=== PATIENT | male | born 1950 | race Caucasian/White ===

== ENCOUNTER → 2020-05-01 09:43 | Outpatient (BNVA) | payer MEDICARE, SELFPAY | PROVIDERS: Family Provider Family Medicine; PCP Family Medicine; Visit Provider Nurse Practitioner Family | DX: I10 Essential (primary) hypertension (principal); L29.9 Pruritus, unspecified; L08.9 Local infection of the skin and subcutaneous tissue, unspecified; E03.9 Hypothyroidism, unspecified | CPT/HCPCS: 80053; 80061; 84439; 84443 ==

== ENCOUNTER → 2021-05-06 11:50 | Outpatient (BNVA) | payer MEDICARE, SELFPAY | PROVIDERS: Family Provider Family Medicine; PCP Family Medicine; Visit Provider Nurse Practitioner Family | DX: E03.9 Hypothyroidism, unspecified (principal); I10 Essential (primary) hypertension; E78.5 Hyperlipidemia, unspecified; Z68.24 Body mass index [BMI] 24.0-24.9, adult; I63.9 Cerebral infarction, unspecified | CPT/HCPCS: 80053; 80061; 84439; 84443; 85025 ==

== ENCOUNTER → 2021-06-23 11:04 | Outpatient (BNVA) | payer MEDICARE, SELFPAY | PROVIDERS: Family Provider Family Medicine; PCP Family Medicine; Visit Provider Nurse Practitioner Family | DX: E03.9 Hypothyroidism, unspecified (principal) | CPT/HCPCS: 84443 ==

== ENCOUNTER → 2021-08-31 09:19 | Outpatient (BNVA) | payer MEDICARE, SELFPAY | PROVIDERS: Family Provider Family Medicine; PCP Family Medicine; Visit Provider Nurse Practitioner Family | DX: E03.9 Hypothyroidism, unspecified (principal) | CPT/HCPCS: 84443 ==

== ENCOUNTER → 2021-10-01 15:58 | Outpatient (BNVA) | payer MEDICARE, SELFPAY | PROVIDERS: Family Provider Family Medicine; PCP Family Medicine; Visit Provider Nurse Practitioner Family | DX: Z20.822 Contact with and (suspected) exposure to COVID-19 (principal); R51.9 Headache, unspecified | CPT/HCPCS: 87635 ==

== ENCOUNTER 2021-10-10 10:26 | Inpatient (IN) | payer MEDICARE, SELFPAY ==
[2021-10-10 11:14] VITALS: BP 72/45; PULSE 84; RESP 16; TEMP 36.4; O2SAT 94
--- NOTE | 2021-10-10 11:34 | XRR_ITS ---
PROCEDURE INFORMATION: Exam: XR Chest Exam date and time: 10/10/2021 11:34 AM Age: 70 years old Clinical indication: Patient HX: PT with HX of fatigue TECHNIQUE: Imaging protocol: XR of the chest. Views: 1 view. COMPARISON: No relevant prior studies available. FINDINGS: Lungs: There are small patchy interstitial infiltrates in the right mid lung zone and left lung base. This could be a developing interstitial pneumonia. Pleural spaces: Unremarkable. No pleural effusion. No pneumothorax. Heart/Mediastinum: Unremarkable. No cardiomegaly. Bones/joints: Unremarkable. XR/XR chest 1V portable [id number] IMPRESSION: Patchy interstitial infiltrates in the right mid lung zone and left base suspicious for an interstitial viral pneumonia.
--- NOTE | 2021-10-10 11:34 | ECG_ITS ---
[facility] Test Date: 2021-10-10 Pat Name: Rich Mederos Department: Room: Gender: Male Terminal Gauger: : 1950 Requested By: Yani Malik Order Number: [id number] Reading MD: LANCE JARVIS Measurements Intervals [place] Rate: 74 P: 40 TN: 178 QRS: 40 QRSD: 96 T: 9 QT: 373 QTc: 415 Interpretive Statements SINUS RHYTHM NONSPECIFIC T-WAVE ABNORMALITY No previous ECG available for comparison Electronically Signed On 10-10-2021 17:44:47 SECURITY GUARD SUPERVISOR by LANCE JARVIS [id number]
[2021-10-10 11:35] LABS: Glucose Point of Care 102 mg/dL (70-110)
--- NOTE | 2021-10-10 11:38 | USR_ITS ---
PROCEDURE INFORMATION: Exam: US Duplex Lower Extremity Veins, Bilateral Exam date and time: 10/10/2021 11:38 AM Age: 70 years old Clinical indication: Swelling (edema) of limb; Lower extremity, bilateral; Patient HX: Covid +; Additional info: Eval for dvt TECHNIQUE: Imaging protocol: Real-time duplex ultrasound of the extremities with 2-D ware scale, color Doppler flow and spectral waveform analysis with image documentation. Complete exam focused on the bilateral lower extremity veins. COMPARISON: No relevant prior studies available. FINDINGS: Right deep veins: Unremarkable. The common femoral, femoral, proximal profunda femoral and popliteal veins are patent without thrombus. Normal Doppler waveforms. Normal compressibility and/or augmentation response. Right superficial veins: Saphenofemoral junction is patent without thrombus. Left deep veins: Unremarkable. The common femoral, femoral, proximal profunda femoral and popliteal veins are patent without thrombus. Normal Doppler waveforms. Normal compressibility and/or augmentation response. Left superficial veins: Saphenofemoral junction is patent without thrombus. Soft tissues: Unremarkable. US/CV venous duplex [facility] [id number] IMPRESSION: No evidence of deep vein thrombosis.
[2021-10-10 11:56] LABS: Basophils # 0.1 10^3/uL (0.0-0.1); Basophils % 0.6 %; Eosinophils % 0.2 %; Hematocrit 41.3 % (42.0-52.0); Hemoglobin 13.6 g/dL (11.7-16.6); Lymphocytes # 1.1 10^3/uL (0.8-4.8); Lymphocytes % 8.6 %; Mean Corpuscular HGB Conc 32.9 g/dL (30.0-36.0); Mean Corpuscular Hemoglobin 30.7 pg (28.0-34.0); Mean Corpuscular Volume 93.2 fl (80-94); Mean Platelet Volume 9.7 fL (7.4-10.4); Monocytes # 1.7 10^3/uL (0.2-0.9); Monocytes % 13.2 %; Neutrophils # 9.13 10^3/uL (1.8-7.7); Neutrophils % 72.8 %; Nucleated Red Blood Cells % 0 %; Platelet Count 451 10^3/cmm (130-400); Red Blood Count 4.43 10^6/uL (4.1-5.3); Red Cell Distribution Width 13.9 % (12.1-15.1); White Blood Count 12.6 10^3/uL (4.0-10.0)
[2021-10-10 12:01] VITALS: BP 104/44; PULSE 77; RESP 24; O2SAT 99
--- NOTE | 2021-10-10 12:08 | ED_ITS ---
HPI - COVID General: Chief Complaint: COVID symptoms Stated Complaint: COVID +, feet swollen, getting worse Time Seen by Provider: 10/10/21 11:23 Triage information: Has fever, cough or shortness of breath . Exposure to COVID + person last 14 days COVID Results: SARS-CoV-2 RNA (RT-PCR) Detected (NOT DETECTED) A 10/01/21 15:58 10/01/21 [facility] ED PFS: Medical History Hyperlipidemia Social History Alcohol intake: never Course Vital Signs: Vital signs: Vital Signs Temperature 97.6 F 10/10/21 11:14 Pulse Rate 84 10/10/21 11:14 Respiratory Rate 16 10/10/21 11:14 Blood Pressure 72/45 10/10/21 11:14 Pulse Oximetry 94 10/10/21 11:14 MDM - COVID Lab Data : 10/10/21 11:31 10/10/21 11:31 Laboratory Results WBC 12.6 10^3/uL (4.0-10.0) H 10/10/21 11:31 RBC 4.43 10^6/uL (4.1-5.3) 10/10/21 11:31 Hgb 13.6 g/dL (11.7-16.6) 10/10/21 11:31 Hct 41.3 % (42.0-52.0) L 10/10/21 11:31 MCV 93.2 fl (80-94) 10/10/21 11:31 MCH 30.7 pg (28.0-34.0) 10/10/21 11:31 MCHC 32.9 g/dL (30.0-36.0) 10/10/21 11:31 RDW 13.9 % (12.1-15.1) 10/10/21 11:31 Plt Count 451 10^3/cmm (130-400) H 10/10/21 11:31 MPV 9.7 fL (7.4-10.4) 10/10/21 11:31 Neut % (Auto) 72.8 % 10/10/21 11:31 Lymph % (Auto) 8.6 % 10/10/21 11:31 [place]kin % (Auto) 13.2 % 10/10/21 11:31 Eos % (Auto) 0.2 % 10/10/21 11:31 Baso % (Auto) 0.6 % 10/10/21 11:31 Neut # (Auto) 9.13 10^3/uL (1.8-7.7) H 10/10/21 11:31 Lymph # (Auto) 1.1 10^3/uL (0.8-4.8) 10/10/21 11:31 [place]kin # (Auto) 1.7 10^3/uL (0.2-0.9) H 10/10/21 11:31 Eos # (Auto) 0.0 10^3/uL (0.0-0.8) 10/10/21 11:31 Baso # (Auto) 0.1 10^3/uL (0.0-0.1) 10/10/21 11:31 Nucleated RBC % (auto) 0 % 10/10/21 11:31 Nucleated RBCs # 0.0 /100WBC 10/10/21 11:31 POC Glucose 102 mg/dL (70-110) 10/10/21 11:31 SARS-CoV-2 RNA (RT-PCR) Detected (NOT DETECTED) A 10/01/21 15:58 10/01/21 Discharge Plan Discharge Condition: Stable Prescriptions: No Action hydroxyzine HCl 25 mg tablet 25 mg PO TID PRN (Reason: itching) Qty: 30 0RF simvastatin 20 mg tablet 20 mg PO DAILY Qty: 90 1RF lisinopril 10 mg tablet 10 mg PO DAILY Qty: 90 1RF clopidogrel [Plavix] 75 mg tablet 75 mg PO DAILY Qty: 90 1RF levothyroxine 88 mcg tablet 88 mcg PO DAILY Qty: 90 3RF Referrals: Alfonzo Galan DO [Primary Care Provider] - Coding Level of Care Code ED Dish Maker for Chg Endy
--- NOTE | 2021-10-10 12:10 | ED_ITS ---
HPI - General Adult General: Chief complaint: COVID symptoms Stated complaint: COVID +, feet swollen, getting worse Time Seen by Provider: 10/10/21 11:23 History of Present Illness: Patient is a 70-year-old male with history of of Covid diagnosed 14 days ago presenting to emergency room with complaints of worsening weakness, fatigue, chills since diagnosis of Covid. Patient says that he has been doing well has not had crease intake since then. Patient has had diarrhea is now improving. Patient denies any melena, abdominal complaints, cough, fever or chills. Patient has not had any oxygen issues at home. Patient reports prior history of cardiac issues. Patient reports bilateral ankle pain and swelling from lying down. Onset: 14 days ago Duration:14 days Location:home Severity:moderate Associated symptoms: Reports malaise; Deny chest pain, dyspnea, nausea, rash, palpitations or vomiting Review of Systems Const: Reports: chills, fatigue, malaise and other (generalized weakness); Denies: fever(s) Eyes: Denies: change in vision ENMT: Denies: mouth pain Card: Denies: chest pain or palpitations Resp: Denies: dyspnea or non-productive cough GI: Denies: abdominal pain, nausea, vomiting or diarrhea : Denies: dysuria Musc: Denies: extremity pain Skin/Breast: Denies: rash or new lesions Neuro: Denies: weakness in extremities Psych: Reports: other (Normal mood) Alber/Lymph: Denies: easy bruising PFSH ED PFSH: Medical History Hyperlipidemia Social History (Updated 10/10/21 @ 12:12 by Yani Malik MD) Smoking and tobacco status: never smoked Alcohol intake: never Substance/Drug Use: never Physical Exam Const: COMMON NORMALS: alert HENMT: COMMON NORMALS: atraumatic HEAD & SCALP: atraumatic MOUTH: moist mucous membranes not abnormal Eye: COMMON NORMALS: EOMs intact bilaterally and conjunctivae normal CONJUNCTIVA: Yes conjunctivae normal Neck/C-Spine: COMMON NORMALS: full ROM and supple Resp: COMMON NORMALS: normal respiratory effort and clear to auscultation bilaterally AUSCULTATION: clear to auscultation bilaterally Cardio: COMMON NORMALS: regular rate RATE: regular rate GI: COMMON NORMALS: Soft to palpation and non-tender PALPATION: Yes Soft to palpation Extremity: COMMON NORMALS: full ROM NARRATIVE EXTREMITY EXAM: no lower extremity swelling or edema Neuro: SENSORIUM/ORIENTATION: Yes alert MOTOR EXAM: No Abnormal motor strength present and Other motor observations present (no focal motor deficits) Psych: COMMON NORMALS: speech normal SPEECH: Yes normal speech MOOD & AFFECT: Yes euthymic mood Course Vital Signs: Vital signs: Vital Signs Temperature 97.6 F 10/10/21 11:14 Pulse Rate 77 10/10/21 12:01 Respiratory Rate 24 H 10/10/21 12:01 Blood Pressure 104/44 10/10/21 12:01 Pulse Oximetry 99 10/10/21 12:01 MDM - General Adult Medical Decision Making 70-year-old male presented to the emergency room for concerns of worsening fatigue, generalized weakness, and ankle swelling. On exam, patient has mild bilateral ankle swelling. No Vera signs. Blood work showed BUN of 96, creatinine 1.9 up from baseline of 1 from 04/2021. Patient H&H appears to be stable, no suspicion for GI bleed. S/p 2 L of IVF. Patient will be mated to hospital for rehydration and correction of uremic encephalopathy and d ehydration. Disposition: Admission Lab Data : 10/10/21 11:31 10/10/21 11:31 Radiology Impressions Chest X-Ray 10/10/21 11:34 IMPRESSION: Patchy interstitial infiltrates in the right mid lung zone and left base suspicious for an interstitial viral pneumonia. Venous Duplex 10/10/21 11:38 IMPRESSION: No evidence of deep vein thrombosis. Laboratory Results WBC 12.6 10^3/uL (4.0-10.0) H 10/10/21 11:31 RBC 4.43 10^6/uL (4.1-5.3) 10/10/21 11:31 Hgb 13.6 g/dL (11.7-16.6) 10/10/21 11:31 Hct 41.3 % (42.0-52.0) L 10/10/21 11:31 MCV 93.2 fl (80-94) 10/10/21 11:31 MCH 30.7 pg (28.0-34.0) 10/10/21 11:31 MCHC 32.9 g/dL (30.0-36.0) 10/10/21 11:31 RDW 13.9 % (12.1-15.1) 10/10/21 11:31 Plt Count 451 10^3/cmm (130-400) H 10/10/21 11:31 MPV 9.7 fL (7.4-10.4) 10/10/21 11:31 Neut % (Auto) 72.8 % 10/10/21 11:31 Lymph % (Auto) 8.6 % 10/10/21 11:31 [place] % (Auto) 13.2 % 10/10/21 11:31 Eos % (Auto) 0.2 % 10/10/21 11:31 Baso % (Auto) 0.6 % 10/10/21 11:31 Neut # (Auto) 9.13 10^3/uL (1.8-7.7) H 10/10/21 11:31 Lymph # (Auto) 1.1 10^3/uL (0.8-4.8) 10/10/21 11:31 [place] # (Auto) 1.7 10^3/uL (0.2-0.9) H 10/10/21 11:31 Eos # (Auto) 0.0 10^3/uL (0.0-0.8) 10/10/21 11:31 Baso # (Auto) 0.1 10^3/uL (0.0-0.1) 10/10/21 11:31 Nucleated RBC % (auto) 0 % 10/10/21 11:31 Nucleated RBCs # 0.0 /100WBC 10/10/21 11:31 Sodium 124 mmol/L (136-145) L 10/10/21 11:31 Potassium 4.9 mmol/L (3.5-5.1) 10/10/21 11:31 Chloride 90 mmol/L (98-107) L 10/10/21 11:31 Carbon Dioxide 20 mmol/L (22-29) L 10/10/21 11:31 Anion Gap 18.9 (5-19) 10/10/21 11:31 BUN 96 mg/dL (8-23) H* D 10/10/21 11:31 Creatinine 1.9 mg/dL (0.7-1.2) H 10/10/21 11:31 GFR Calculation 35.2 mL/min (90-130) L 10/10/21 11:31 Glucose 103 mg/dL (65-115) 10/10/21 11:31 POC Glucose 102 mg/dL (70-110) 10/10/21 11:31 Calculated Osmolality 288 mOsm/kg (285-295) 10/10/21 11:31 Calcium 7.5 mg/dL (8.5-10.5) L 10/10/21 11:31 Total Bilirubin 0.5 mg/dL (0.15-1.2) 10/10/21 11:31 AST 76 U/L (0-40) H 10/10/21 11:31 ALT 53 U/L (0-41) H 10/10/21 11:31 Alkaline Phosphatase 64 IU/L (40-130) 10/10/21 11:31 Troponin T Baseline 18 ng/L (0-15) H 10/10/21 11:31 NT-Pro-B Natriuret Pep 234 pg/mL (0-125) H 10/10/21 11:31 Total Protein 5.5 g/dL (6.6-8.7) L 10/10/21 11:31 Albumin 3.1 g/dL (3.5-5.2) L 10/10/21 11:31 Globulin 2.4 g/dL (1.3-4.6) 10/10/21 11:31 Lipase 37 U/L (13-60) 10/10/21 11:31 Imaging Data Other Imaging: Radiologist's impression: [address] [address] Ultrasound Report Signed Patient: Rich Mederos Unit #: [id number] : 1950 Age/Sex: 70 / M ADM Date: 10/10/21 Loc: ER Room/Bed: Attending Dr: Ordering Provider/Ordering MD: Yain Malik MD Date of Service: 10/10/21 Procedure(s): [place] [address] Accession Number(s): [id number] Report Number: [id number] PROCEDURE INFORMATION: Exam: US Duplex Lower Extremity Veins, Bilateral Exam date and time: 10/10/2021 11:38 AM Age: 70 years old Clinical indication: Swelling (edema) of limb; Lower extremity, bilateral; Patient HX: Covid +; Additional info: Eval for dvt TECHNIQUE: Imaging protocol: Real-time duplex ultrasound of the extremities with 2-D ware scale, color Doppler flow and spectral waveform analysis with image documentation. Complete exam focused on the bilateral lower extremity veins. COMPARISON: No relevant prior studies available. FINDINGS: Right deep veins: Unremarkable. The common femoral, femoral, proximal profunda femoral and popliteal veins are patent without thrombus. Normal Doppler waveforms. Normal compressibility and/or augmentation response.? Right superficial veins: Saphenofemoral junction is patent without thrombus. Left deep veins: Unremarkable. The common femoral, femoral, proximal profunda femoral and popliteal veins are patent without thrombus. Normal Doppler waveforms. Normal compressibility and/or augmentation response.? Left superficial veins: Saphenofemoral junction is patent without thrombus. Soft tissues: Unremarkable. US/[place] [id number] IMPRESSION: No evidence of deep vein thrombosis. ? Dictated By: Bib Perdomo Signed By: Bib Perdomo Signed Date/Time: 10/10/21 1241 DD/ [address] [place] [address] XRay Report Signed Patient: Rich Mederos Unit #: [id number] : 1950 Age/Sex: 70 / M ADM Date: 10/10/21 Loc: ER Room/Bed: Attending Dr: Ordering Provider/Ordering MD: Yani Malik MD Date of Service: 10/10/21 Procedure(s): XR chest 1V portable [id number] Accession Number(s): [id number] Report Number: [id number] PROCEDURE INFORMATION: Exam: XR Chest Exam date and time: 10/10/2021 11:34 AM Age: 70 years old Clinical indication: Patient HX: PT with HX of fatigue TECHNIQUE: Imaging protocol: XR of the chest. Views: 1 view. COMPARISON: No relevant prior studies available. FINDINGS: Lungs: There are small patchy interstitial infiltrates in the right mid lung zone and left lung base. This could be a developing interstitial pneumonia. Pleural spaces: Unremarkable. No pleural effusion. No pneumothorax. Heart/Mediastinum: Unremarkable. No cardiomegaly. Bones/joints: Unremarkable. XR/XR chest 1V portable [id number] IMPRESSION: Patchy interstitial infiltrates in the right mid lung zone and left base suspicious for an interstitial viral pneumonia. ? Dictated By: Bib Perdomo Signed By: Bib Perdomo Signed Date/Time: 10/10/21 1222 DD/ 1134 Discharge Plan Discharge Patient Disposition: Admitted As Inpatient Clinical Impression: Uremic encephalopathy, Dehydration Condition: Stable Coding Level of Care Code ED Assistant Account Manager for Chg Fwd Exam Comprehensive
[2021-10-10] MEDS: sodium chloride 0.9% 1,000 ML 999 ML IV (12:21)
[2021-10-10 12:32] LABS: Alanine Aminotransferase 53 U/L (0-41); Albumin Level 3.1 g/dL (3.5-5.2); Alkaline Phosphatase 64 IU/L (40-130); Anion Gap 18.9 (5-19); Aspartate Amino Transferase 76 U/L (0-40); Calcium 7.5 mg/dL (8.5-10.5); Carbon Dioxide 20 mmol/L (22-29); Chloride 90 mmol/L (98-107); Globulin 2.4 g/dL (1.3-4.6); Glomerular Filtration Rate 35.2 mL/min (90-130); Glucose 103 mg/dL (65-115); Lipase 37 U/L (13-60); NT Pro B Type Natriuretic Pept 234 pg/mL (0-125); Osmolality Calculated 288 mOsm/kg (285-295); Potassium 4.9 mmol/L (3.5-5.1); Sodium 124 mmol/L (136-145); Total Bilirubin 0.5 mg/dL (0.15-1.2); Total Protein 5.5 g/dL (6.6-8.7)
[2021-10-10 12:35] LABS: Blood Urea Nitrogen 96 mg/dL (8-23)
[2021-10-10 12:44] LABS: Troponin(5th) Baseline 18 ng/L (0-15)
--- NOTE | 2021-10-10 13:34 | ECG_ITS ---
[facility] Test Date: 2021-10-10 Pat Name: Rich Mederos Department: Room: ED Gender: Male Banking Manager: : 1950 Requested By: Yani Malik Order Number: [id number] Reading MD: LANCE JARVIS Measurements Intervals [place] Rate: 76 P: 58 CO: 180 QRS: 57 QRSD: 90 T: 43 QT: 401 QTc: 453 Interpretive Statements SINUS RHYTHM SEPTAL MYOCARDIAL INFARCTION , PROBABLY OLD [40+ ms Q WAVE IN V1/V2] Compared to ECG 10/10/2021 11:31:19 Myocardial infarct finding now present T-wave abnormality no longer present Electronically Signed On 10-10-2021 17:46:05 PHYSICAL EDUCATION DEPARTMENT CHAIR by LANCE JARVIS [id number]
[2021-10-10 13:51] LABS: Troponin 5 2HR 15.12 ng/L (0-15); Troponin 5 2HR Delta -2.88 ABS# (0-10)
[2021-10-10] MEDS: lidocaine 2% viscous 15 ML, aluminum-mag hydrox-simethicon 30 ML, sucralfate oral liq 1 GM PO (15:03)
[2021-10-10] MEDS: acetaminophen 500 mg Tablet 1000 MG PO (15:08)
[2021-10-10 15:11] VITALS: BP 94/51; PULSE 78; RESP 20
[2021-10-10 17:00] VITALS: BP 106/62; PULSE 76; RESP 16
--- NOTE | 2021-10-10 17:34 | ECG_ITS ---
[facility] Test Date: 2021-10-10 Pat Name: Rich Mederos Department: Room: 261 Gender: Male Project Manager Process Development: : 1950 Requested By: Yani Malik Order Number: [id number] Reading MD: LANCE JARVIS Measurements Intervals [place] Rate: 86 P: 13 AK: 173 QRS: 24 QRSD: 106 T: 42 QT: 353 QTc: 424 Interpretive Statements SINUS RHYTHM SEPTAL MYOCARDIAL INFARCTION , PROBABLY OLD [40+ ms Q WAVE IN V1/V2] Compared to ECG 10/10/2021 13:38:54 No significant changes Electronically Signed On 10-11-2021 19:20:07 SWIMMING INSTRUCTOR by LANCE JARVIS [id number]
[2021-10-10 18:35] LABS: D Dimer 1.78 ug/mIFEU (0-0.59); Troponin 5 6HR 16.92 ng/L (0-15); Troponin 5 6HR Delta -1.08 ng/L (0-12)
[2021-10-10] MEDS: sodium chloride 0.9% 1,000 ML 100 ML IV (18:48)
--- NOTE | 2021-10-10 18:53 | P.HP_ITS ---
Providers/Chief Complaint Admitting Physician: Indigo De Jesus MD Primary Care Provider: Alfonzo Galan DO Chief Complaint: COVID +, feet swollen, getting worse History of Present Illness Rich Mederos is a 70 year old unvaccinated male, tested positive for covid 19 on 10/01 and has been experiencing generalized weakness, fatigue, multiple episodes fo diarrhea per day and inability to tolerate po intake since diagnosis. Estimates he has only had a quart of water ove rthe past 14 days. Presented to ER today as he reported being too weak to walk. IN ER noted to be dehydrated, have hyponatremia 124, CORBIN with cr 1.9 (previously 0.9). NO respiratory complaints. Denies any blood in stools. Has taken a few caps of imodium at home which has reduced frequency of diarrhea. No fever, chills. Review of Systems General: Reports: 10 or more systems reviewed and unremarkable except in HPI and below Const: Denies: fever(s), chills or body aches Eyes: Denies: change in vision, blurry vision or photophobia ENMT: Reports: hoarseness; Denies: throat pain, enlarged tonsils, odynophagia or nasal congestion Card: Denies: chest pain, palpitations, irregular heart rhythm, edema, swelli ng of feet/ankles, lightheadedness, pre-syncope, dyspnea on exertion or orthopnea Resp: Denies: dyspnea, productive cough, non-productive cough, wheezing, stridor, pain on inspiration, change in phlegm color, hemoptysis or chest congestion GI: Denies: abdominal pain, nausea, vomiting, hematemesis, coffee ground emesis, dysphagia, heartburn, diarrhea, constipation, GI cramping, change in stool character, hematochezia or melena : Denies: flank pain, dysuria, urinary frequency, urinary urgency, urinary hesitancy or hematuria Musc: Denies: neck pain, back pain, extremity pain, joint swelling, joint warmth or deformity Neuro: Denies: headache(s), numbness in extremities, weakness in extremities, sensory changes, difficulty walking, frequent falls, dizziness, vertigo, behavioral changes, Slurred speech present or seizure-like activity Psych: Denies: anxiety, depression, suicidal ideation or homicidal ideation Endo: Denies: polyuria, polydipsia, tired all the time, cold intolerance or hot flashes Alber/Lymph: Denies: easy bruising or easy bleeding Medications/Allergies Home Medications Medication Instructions Recorded Confirmed Last Taken Type hydroxyzine HCl 25 mg tablet 25 mg PO TID PRN #30 tab 04/29/20 10/01/21 Unknown Rx clopidogrel 75 mg tablet (Plavix) 75 mg PO DAILY #90 tab 05/06/21 10/01/21 Unknown Rx lisinopril 10 mg tablet 10 mg PO DAILY #90 tab 05/06/21 10/01/21 Unknown Rx simvastatin 20 mg tablet 20 mg PO DAILY #90 tab 05/06/21 10/01/21 Unknown Rx levothyroxine 88 mcg tablet 88 mcg PO DAILY #90 tab 10/01/21 10/01/21 Unknown Rx Allergies Allergy/AdvReac Type Severity Reaction Status Date / Time No Known Allergies Allergy Verified 10/01/21 15:41 PFSH Acute PFSH: Medical History Hyperlipidemia Social History Smoking and tobacco status: never smoked Alcohol intake: never Substance/Drug Use: never Vitals/I&O/Wt Last Vital Signs Temp 97.6 F 10/10/21 11:14 Pulse 76 10/10/21 17:00 Resp 16 10/10/21 17:00 BP 106/62 10/10/21 17:00 Pulse Ox 99 10/10/21 12:01 10/10/21 10/10/21 10/10/21 06:59 14:59 22:59 Intake Total 1000 / 1000 Balance 1000 / 1000 Physical Exam Narrative: EXAM NARRATIVE: GEN: Awake, alert and oriented, sitting in bed, eating dinner, appears dehydrated. CVS: S1S2 N RS: CTA B/L Abd: Soft, nt/nd , bs+ CANDY BUTCHER: no focal neuro deficits Data : 10/10/21 11:31 10/10/21 11:31 A&P Assessment and plan (1) Dehydration: likely from excessive GI losses by way of diarrhea, poor po intake IVF NS @ 100cc/hr encourage po inatake Status: Acute (2) COVID-19: no resp symptoms currently Day 10 since + result isolation precautions until day 14 GI symptoms, transaminitis likely attributable to acute viral illness No current indication for remdisivir, steroids, monoclonal AB currently monitor resp status , currently saturating 99% on RA CXR with few infiltrates Status: Acute (3) CORBIN (acute kidney injury): cr at 1.9 likely 2/2 dehydration IVF as above US renal to evalute for hydronephrosis check CPK, supect rhabdpmyolysis given extreme muscle weakness, COVID and CORBIN Status: Acute (4) Transaminitis: likely from dehydration and volume loss monitor with hydration for now Status: Acute (5) Hyponatremia: likely from dehydration NS @ 100cc/hr Monitor with am labs check urine lytes, UA Status: Acute (6) Diarrhea: likely from viral illness however given persistent symptoms will check additionally for C diff and enteic panel Status: Acute Attestations Medical Necessity Statement*: anticipate >2midnight admission for iv hyd ration, evalutaion for rhabdomyolysis, correction of hyponatremia and CORBIN Coding Level of Care Code Acute Personnel Manager for [facility] Fwd Diagnoses Dehydration E86.0 COVID-19 U07.1 CORBIN (acute kidney injury) N17.9 Transaminitis R74.01 Hyponatremia E87.1 Diarrhea R19.7
[2021-10-10 19:35] LABS: C Reactive Protein 22.3 mg/L (0.0-4.9)
[2021-10-10 19:38] LABS: Creatine Phosphokinase 621 U/L (39-308)
[2021-10-10 20:00] VITALS: BP 86/57; PULSE 81; RESP 17; TEMP 36.6; O2SAT 95
[2021-10-10] MEDS: enoxaparin 40 mg/0.4 mL Syringe SUBCUT (20:24)
[2021-10-11] VITALS: BP 104/67; PULSE 85; RESP 16; TEMP 36.6; O2SAT 94
[2021-10-11 04:00] VITALS: BP 99/62; PULSE 97; RESP 17; TEMP 36.5; O2SAT 97
[2021-10-11] MEDS: sodium chloride 0.9% 1,000 ML 100 ML IV (04:52)
[2021-10-11 05:13] LABS: Potassium, Radom Urine 10 mmol/L; Urine Random Sodium 24 mmol/L
[2021-10-11 05:14] LABS: Basophils # 0.1 10^3/uL (0.0-0.1); Basophils % 0.5 %; Eosinophils # 0.1 10^3/uL (0.0-0.8); Eosinophils % 0.9 %; Hematocrit 36.7 % (42.0-52.0); Lymphocytes # 1.3 10^3/uL (0.8-4.8); Lymphocytes % 12.2 %; Mean Corpuscular HGB Conc 32.7 g/dL (30.0-36.0); Mean Corpuscular Hemoglobin 30.8 pg (28.0-34.0); Mean Corpuscular Volume 94.1 fl (80-94); Mean Platelet Volume 9.5 fL (7.4-10.4); Monocytes # 1.6 10^3/uL (0.2-0.9); Monocytes % 15.4 %; Neutrophils # 7.11 10^3/uL (1.8-7.7); Neutrophils % 66.9 %; Nucleated Red Blood Cells % 0 %; Platelet Count 413 10^3/cmm (130-400); Red Cell Distribution Width 14.1 % (12.1-15.1); White Blood Count 10.6 10^3/uL (4.0-10.0)
[2021-10-11 05:21] LABS: Urine Random Chloride 15 mmol/L
[2021-10-11 05:22] LABS: Add Urine Microscopic? YES; Bilirubin Urine Neg (Negative); Blood Urine 2+ (Negative); Glucose Urine UA Norm (Normal); Ketones Urine 1+ (Negative); Leukocyte Esterase Urine Negative (Negative); Nitrate Urine Negative (Negative); Protein Urine Neg (Negative); Urine Appearance Clear (CLEAR); Urine Color Yellow (Yellow); Urobilinogen Urine Norm (Negative); pH Urine 5 (5-7)
[2021-10-11 05:23] LABS: Add Urine Culture? No; Amorphous Sediment Urine 1+ /hpf; Bacteria Urine 1+ /hpf; RBC Urine 0-4 /hpf (0-2); Squamous Epithelial Cell Urine 0-4 /hpf (0-5); WBC Urine 0-4 /hpf (0-5)
[2021-10-11 05:45] LABS: Alanine Aminotransferase 45 U/L (0-41); Albumin Level 2.8 g/dL (3.5-5.2); Alkaline Phosphatase 55 IU/L (40-130); Anion Gap 14.2 (5-19); Aspartate Amino Transferase 62 U/L (0-40); Blood Urea Nitrogen 67 mg/dL (8-23); Carbon Dioxide 20 mmol/L (22-29); Chloride 103 mmol/L (98-107); Glomerular Filtration Rate 59.9 mL/min (90-130); Glucose 100 mg/dL (65-115); Osmolality Calculated 293 mOsm/kg (285-295); Potassium 5.2 mmol/L (3.5-5.1); Sodium 132 mmol/L (136-145); Total Bilirubin 0.3 mg/dL (0.15-1.2); Total Protein 4.8 g/dL (6.6-8.7)
[2021-10-11] MEDS: levothyroxine 88 mcg Tablet PO (08:32)
[2021-10-11] MEDS: atorvastatin 40 mg Tablet 20 MG PO (08:32)
[2021-10-11] MEDS: pantoprazole DR 40 mg Tablet PO (08:33)
[2021-10-11] MEDS: clopidogrel 75 mg Tablet PO (08:33)
[2021-10-11 08:41] VITALS: BP 90/59; PULSE 84; RESP 17; TEMP 36.7; O2SAT 94
[2021-10-11 12:16] VITALS: BP 83/59; PULSE 98; RESP 17; TEMP 36.6; O2SAT 90
[2021-10-11 15:04] VITALS: BP 113/80
--- NOTE | 2021-10-11 15:43 | PC.SOCIAL ---
Pt wasnt a trigger, but needed a walker at [place], called and spoke to pt and got his choice of DME company. which was [facility] and then faxed papers to [facility] for a walker.
--- NOTE | 2021-10-11 15:57 | P.DS_ITS ---
Discharge Providers Date of Admission: 10/10/21 12:43 Date of Discharge: October 11, 2021 Attending Provider at Admission: Indigo De Jesus MD Attending Provider at Discharge: Indigo De Jesus MD Primary Care Provider: Alfonzo Galan DO Diagnoses at Discharge Discharge Diagnosis (1) Dehydration: Status: Acute (2) COVID-19: Status: Acute (3) CORBIN (acute kidney injury): Status: Acute (4) Transaminitis: Status: Acute (5) Hyponatremia: Status: Acute (6) Diarrhea: Status: Acute (7) Rhabdomyolysis due to COVID-19: Status: Acute Reason for Visit Reason for Visit: COVID +, feet swollen, getting worse Brief History: Rich Mederos is a 70 year old unvaccinated male, tested positive for covid 19 on 10/01 and has been experiencing generalized weakness, fatigue, multiple episodes fo diarrhea per day and inability to tolerate po intake since diagnosis. Estimates he has only had a quart of water ove rthe past 14 days. Presented to ER today as he reported being too weak to walk. IN ER noted to be dehydrated, have hyponatremia 124, CORBIN with cr 1.9 (previously 0.9). NO respiratory complaints. Denies any blood in stools. Has taken a few caps of imodium at home which has reduced frequency of diarrhea. No fever, chills. Discharge Data Studies Completed and Pending Completed Studies During Hospitalization Category Date Time Status XR chest 1V portable [id number] Urgent Exams 10/10/21 11:34 Completed US renal BI* [id number] Routine Ultrasound 10/11/21 18:52 Completed US venous duplex lower extremity bilat [CV venous Ultrasound 10/10/21 11:38 [place] [id number]] Urgent Pending at discharge Category Date Time Status C DIFF [Clostridioides Difficile PCR] Routine Lab 10/10/21 18:49 Uncollected Enteric Bacterial Panel by PCR Routine Lab 10/10/21 18:49 Uncollected Occult Blood Stool [Immunochemical Fecal OCB] Routine Lab 10/10/21 18:55 Uncollected Radiology Impressions Chest X-Ray 10/10/21 11:34 IMPRESSION: Patchy interstitial infiltrates in the right mid lung zone and left base suspicious for an interstitial viral pneumonia. Venous Duplex 10/10/21 11:38 IMPRESSION: No evidence of deep vein thrombosis. Renal Ultrasound 10/11/21 18:52 IMPRESSION: Unremarkable kidneys and bladder. Laboratory Results WBC 10.6 10^3/uL (4.0-10.0) H 10/11/21 05:05 RBC 3.90 10^6/uL (4.1-5.3) L 10/11/21 05:05 Hgb 12.0 g/dL (11.7-16.6) 10/11/21 05:05 Hct 36.7 % (42.0-52.0) L 10/11/21 05:05 MCV 94.1 fl (80-94) H 10/11/21 05:05 MCH 30.8 pg (28.0-34.0) 10/11/21 05:05 MCHC 32.7 g/dL (30.0-36.0) 10/11/21 05:05 RDW 14.1 % (12.1-15.1) 10/11/21 05:05 Plt Count 413 10^3/cmm (130-400) H 10/11/21 05:05 MPV 9.5 fL (7.4-10.4) 10/11/21 05:05 Neut % (Auto) 66.9 % 10/11/21 05:05 Lymph % (Auto) 12.2 % 10/11/21 05:05 [place] % (Auto) 15.4 % 10/11/21 05:05 Eos % (Auto) 0.9 % 10/11/21 05:05 Baso % (Auto) 0.5 % 10/11/21 05:05 Neut # (Auto) 7.11 10^3/uL (1.8-7.7) 10/11/21 05:05 Lymph # (Auto) 1.3 10^3/uL (0.8-4.8) 10/11/21 05:05 [place] # (Auto) 1.6 10^3/uL (0.2-0.9) H 10/11/21 05:05 Eos # (Auto) 0.1 10^3/uL (0.0-0.8) 10/11/21 05:05 Baso # (Auto) 0.1 10^3/uL (0.0-0.1) 10/11/21 05:05 Nucleated RBC % (auto) 0 % 10/11/21 05:05 Nucleated RBCs # 0.0 /100WBC 10/11/21 05:05 D-Dimer 1.78 ug/mIFEU (0-0.59) H 10/10/21 17:55 Sodium 132 mmol/L (136-145) L 10/11/21 05:05 Potassium 5.2 mmol/L (3.5-5.1) H 10/11/21 05:05 Chloride 103 mmol/L (98-107) 10/11/21 05:05 Carbon Dioxide 20 mmol/L (22-29) L 10/11/21 05:05 Anion Gap 14.2 (5-19) 10/11/21 05:05 BUN 67 mg/dL (8-23) H 10/11/21 05:05 Creatinine 1.2 mg/dL (0.7-1.2) 10/11/21 05:05 GFR Calculation 59.9 mL/min (90-130) L 10/11/21 05:05 Glucose 100 mg/dL (65-115) 10/11/21 05:05 POC Glucose 102 mg/dL (70-110) 10/10/21 11:31 Calculated Osmolality 293 mOsm/kg (285-295) 10/11/21 05:05 Calcium 7.0 mg/dL (8.5-10.5) L 10/11/21 05:05 Total Bilirubin 0.3 mg/dL (0.15-1.2) 10/11/21 05:05 AST 62 U/L (0-40) H 10/11/21 05:05 ALT 45 U/L (0-41) H 10/11/21 05:05 Alkaline Phosphatase 55 IU/L (40-130) 10/11/21 05:05 Creatine Kinase 621 U/L (39-308) H* 10/10/21 17:55 Troponin T Baseline 18 ng/L (0-15) H 10/10/21 11:31 Troponin T 120 Minute 15.12 ng/L (0-15) H 10/10/21 13:20 Delta Troponin T -2.88 ABS# (0-10) L 10/10/21 13:20 Troponin T Hi Sens 6Hr 16.92 ng/L (0-15) H 10/10/21 17:55 Troponin T Hi Sens 6Hr Delta -1.08 ng/L (0-12) L 10/10/21 17:55 C-Reactive Protein 22.3 mg/L (0.0-4.9) H 10/10/21 17:55 NT-Pro-B Natriuret Pep 234 pg/mL (0-125) H 10/10/21 11:31 Total Protein 4.8 g/dL (6.6-8.7) L 10/11/21 05:05 Albumin 2.8 g/dL (3.5-5.2) L 10/11/21 05:05 Globulin 2.0 g/dL (1.3-4.6) 10/11/21 05:05 Lipase 37 U/L (13-60) 10/10/21 11:31 Urine Color Yellow (Yellow) 10/11/21 04:50 Urine Appearance Clear (CLEAR) 10/11/21 04:50 Urine pH 5 (5-7) 10/11/21 04:50 Ur Specific [place] 1.010 (1.005-1.030) 10/11/21 04:50 Urine Protein Neg (Negative) 10/11/21 04:50 Urine Glucose (UA) Norm (Normal) 10/11/21 04:50 Urine Ketones 1+ (Negative) H 10/11/21 04:50 Urine Blood 2+ (Negative) H 10/11/21 04:50 Urine Nitrate Negative (Negative) 10/11/21 04:50 Urine Bilirubin Neg (Negative) 10/11/21 04:50 Urine Urobilinogen Norm mg/dL (Negative) 10/11/21 04:50 Ur Leukocyte Esterase Negative (Negative) 10/11/21 04:50 Urine RBC 0-4 /hpf (0-2) H 10/11/21 04:50 Urine WBC 0-4 /hpf (0-5) H 10/11/21 04:50 Ur Squamous Epith Cells 0-4 /hpf (0-5) H 10/11/21 04:50 Amorphous Sediment 1+ /hpf 10/11/21 04:50 Urine Bacteria 1+ /hpf (NONE) H 10/11/21 04:50 Ur Random Sodium 24 mmol/L 10/11/21 04:50 Ur Random Potassium 10 mmol/L 10/11/21 04:50 Ur Random Chloride 15 mmol/L 10/11/21 04:50 Vitals Last Vital Signs Temp 97.9 F 10/11/21 12:16 Pulse 98 10/11/21 12:16 Resp 17 10/11/21 12:16 BP 113/80 10/11/21 15:04 Pulse Ox 90 10/11/21 12:16 Discharge Plan Discharge Patient Disposition: Home Condition: Stable Prescriptions: Continued hydroxyzine HCl 25 mg tablet 25 mg PO TID PRN (Reason: itching) Qty: 30 0RF clopidogrel [Plavix] 75 mg tablet 75 mg PO DAILY Qty: 90 1RF levothyroxine 88 mcg tablet 88 mcg PO DAILY Qty: 90 3RF Held simvastatin 20 mg tablet 20 mg PO DAILY Qty: 90 1RF Hold Instructions: Resume on 10/13/21. Discontinued lisinopril 10 mg tablet 10 mg PO DAILY Qty: 90 1RF Discharge Orders: Discharge Order (Routine); Ordered 10/11/21 Ordered By: Indigo De Jesus Other Ambulatory Orders: DME: Donal[facility] (Order) Location: None Selected Ordered By: Indigo De Jesus Referrals: Alfonzo Galan DO [Primary Care Provider] - 7-10 days Discharge Diet: Advance as tolerated Discharge Activity: Resume usual activity Patient Instructions: Dehydration - Adult, Levothyroxine (By mouth), Clopidogrel (By mouth), Rhabdomyolysis (DC), COVID-19 (Coronavirus Disease 2019) (DC), Opioid Safety Coding Level of Care Code Acute [facility] DC note Diagnoses Dehydration E86.0 COVID-19 U07.1 CORBIN (acute kidney injury) N17.9 Transaminitis R74.01 Hyponatremia E87.1 Diarrhea R19.7 Rhabdomyolysis due to COVID-19 U07.1; M62.82
--- NOTE | 2021-10-11 16:09 | PM.PN ---
Subjective Subjective: Interval history: Creatinine improving down to 1.2. Mild hyperkalemia noted at 5.2. He has had 1200 cc of urine output thus far. CPK elevated suggestive of rhabdomyolysis. Fluctuating blood pressure still between 80-1 10 systolic. Transaminitis improving. Patient has no new complaints. States he feels slightly better. Reports he has had a poor p.o. intake as the city supply does not taste good to him. He was able to ambulate in the room today with support. Vitals/I&O/Wt Last Vital Signs Temp 97.9 F 10/11/21 12:16 Pulse 98 10/11/21 12:16 Resp 17 10/11/21 12:16 BP 113/80 10/11/21 15:04 Pulse Ox 90 10/11/21 12:16 10/11/21 10/11/21 10/11/21 06:59 14:59 22:59 Intake Total 1480 / 2600 1000 / 1000 Output Total 550 / 800 470 / 470 Balance 930 / 1800 530 / 530 Weight last 48 hrs Weight 78.67 kg Physical Exam Narrative: EXAM NARRATIVE: GEN: Awake, alert and oriented, no acute distress CVS: S1S2 N RS: CTA B/L Abd: Soft, nt/nd , bs+ COLLECTIONS CLERK: no focal neuro deficits Data : 10/11/21 05:05 10/11/21 05:05 A&P Assessment and plan (1) Dehydration: likely from excessive GI losses by way of diarrhea, poor po intake. His diarrhea is currently resolved. IVF NS @ 100cc/hr encourage po inatake Status: Acute (2) COVID-19: no resp symptoms currently Day 11 since + result isolation precautions until day 14 GI symptoms, transaminitis likely attributable to acute viral illness No current indication for remdisivir, steroids, monoclonal AB currently monitor resp status , currently saturating 94% on RA CXR with few infiltrates Status: Acute (3) CORBIN (acute kidney injury): cr at 1.9>> 1.2 likely 2/2 dehydration IVF as above US renal negative for any obstructive process Likely secondary to rhabdomyolysis, CPK elevated in the 600 range., Monitor with a.m. labs. Mild hyperkalemia 5.2 likely attributable also to acute kidney injury. Status: Acute (4) Transaminitis: likely from dehydration and volume loss monitor with hydration for now Status: Acute (5) Hyponatremia: Most likely from dehydration. Is currently improved to 132 today. Continue with IV fluids, monitor again tomorrow. No neurological deficits. Monitor with am labs Status: Acute (6) Diarrhea: Now resolved. Unable to get specimen for C. difficile and enteric panel testing as patient has not had any bowel movements Status: Acute (7) Rhabdomyolysis due to COVID-19: Hydration as above Hold statins for now Status: Acute Attestations Medical Necessity Statement*: Episodes of hypotension with systolic blood pressure down in the 80s. Patient would benefit from further IV hydration. CORBIN is improving, hyperkalemia at 5.2, recheck with a.m. labs. Recheck CPK with a.m. labs Coding Level of Care Code Acute Special Needs Caregiver for [employer] Diagnoses Dehydration E86.0 COVID-19 U07.1 CORBIN (acute kidney injury) N17.9 Transaminitis R74.01 Hyponatremia E87.1 Diarrhea R19.7 Rhabdomyolysis due to COVID-19 U07.1; M62.82
--- NOTE | 2021-10-11 18:52 | USR_ITS ---
PROCEDURE INFORMATION: Exam: US Retroperitoneal; Complete; Kidneys and Bladder Exam date and time: 10/11/2021 6:52 PM Age: 70 years old Clinical indication: Abnormal findings; Abnormal lab test; Abnormal kidney function lab tests; Additional info: Evaluate for hydronephrosis TECHNIQUE: Imaging protocol: Real-time ultrasound of the retroperitoneum with image documentation. Complete exam focused on the kidneys and bladder. COMPARISON: [place] [id number] 10/10/2021 11:57 AM FINDINGS: Right kidney: The right kidney measures 9.34 cm in length with a cortical thickness of 1.0 cm. Renal echogenicity is normal. No masses. . No stones. No hydronephrosis. Left kidney: The left kidney measures 9.5 cm in length with a cortical thickness of 1.4 cm. Renal echogenicity is normal. No masses . No renal mass . No stones. No hydronephrosis. Aorta: The abdominal aorta is obscured by bowel gas. Urinary bladder: Unremarkable. US/US renal BI* [id number] IMPRESSION: Unremarkable kidneys and bladder.
[2021-10-11 20:00] VITALS: BP 127/79; PULSE 115; RESP 17; TEMP 37.5; O2SAT 95
[2021-10-11] MEDS: enoxaparin 40 mg/0.4 mL Syringe SUBCUT (20:30)
[2021-10-12] VITALS: BP 89/59; PULSE 97; RESP 17; TEMP 37.9; O2SAT 94
[2021-10-12 04:00] VITALS: BP 99/72; PULSE 64; RESP 16; TEMP 37.2; O2SAT 93
[2021-10-12 07:32] LABS: Alanine Aminotransferase 33 U/L (0-41); Albumin Level 2.5 g/dL (3.5-5.2); Alkaline Phosphatase 53 IU/L (40-130); Anion Gap 11.9 (5-19); Aspartate Amino Transferase 44 U/L (0-40); Blood Urea Nitrogen 28 mg/dL (8-23); Calcium 7.3 mg/dL (8.5-10.5); Carbon Dioxide 22 mmol/L (22-29); Chloride 105 mmol/L (98-107); Globulin 2.8 g/dL (1.3-4.6); Glomerular Filtration Rate 95.6 mL/min (90-130); Glucose 99 mg/dL (65-115); Osmolality Calculated 284 mOsm/kg (285-295); Potassium 4.9 mmol/L (3.5-5.1); Sodium 134 mmol/L (136-145); Total Bilirubin 0.6 mg/dL (0.15-1.2); Total Protein 5.3 g/dL (6.6-8.7)
[2021-10-12 07:34] LABS: Creatine Phosphokinase 524 U/L (39-308)
[2021-10-12] MEDS: clopidogrel 75 mg Tablet PO (09:50)
[2021-10-12] MEDS: levothyroxine 88 mcg Tablet PO (09:50)
[2021-10-12] MEDS: pantoprazole DR 40 mg Tablet PO (09:50)
[2021-10-12] MEDS: sodium chloride 0.9% 1,000 ML 75 ML IV (09:51)
[2021-10-12 12:00] VITALS: BP 110/52; PULSE 73; TEMP 36.2; O2SAT 99
--- NOTE | 2021-10-12 12:16 | PM.DCS ---
Discharge Providers Date of Admission: 10/10/21 12:43 Date of Discharge: October 12, 2021 Attending Provider at Admission: Indigo De Jesus MD Attending Provider at Discharge: Bassem Wu Primary Care Provider: Alfonzo Galan DO Diagnoses at Discharge Discharge Diagnosis (1) Dehydration: Status: Acute (2) COVID-19: Status: Acute (3) CORBIN (acute kidney injury): Status: Acute (4) Transaminitis: Status: Acute (5) Hyponatremia: Status: Acute (6) Diarrhea: Status: Acute (7) Rhabdomyolysis due to COVID-19: Status: Acute Reason for Visit Reason for Visit: COVID +, feet swollen, getting worse Hospital Course Hospital Course Pleasant 70-year-old gentleman was admitted for assessment and treatment due to COVID-19 associated with GI symptoms, diarrhea, poor oral intake, dehydration noted on presentation. Reports symptoms overall started over 2 weeks earlier from now. On presentation noted with rhabdomyolysis, acute kidney injury, creatinine 1.9, received IV hydration, with improvement in renal function, and decreasing CK. No obstructive process noted on kidney ultrasound. Hyponatremia improved. Mild hyperkalemia on presentation improved. statin is also held for now for this reason. Blood pressure with some fluctuation and somewhat soft yesterday down to 83/59. Doing better this morning 99/72. He denies any lightheadedness, dizziness, and otherwise is doing well with resolution of diarrhea. Specimen for C. difficile could not be obtained. Oxygenation has done well and has continued on room air. Please reassess blood pressures, volume status, renal function, CK at next visit. Physical Exam Const: COMMON NORMALS: no acute distress and patient oriented x3 HENMT: COMMON NORMALS: oropharynx normal Neck/C-Spine: COMMON NORMALS: no JVD Resp: COMMON NORMALS: normal respiratory effort and clear to auscultation bilaterally AUSCULTATION: clear to auscultation bilaterally Cardio: COMMON NORMALS: no JVD, regular rhythm, S1 normal heart sound present, S2 normal heart sound present and No murmurs present (Cardio) RHYTHM: regular rhythm HEART SOUNDS: S1 normal heart sound present and S2 normal heart sound present GI: COMMON NORMALS: Normal to inspection, nondistended, normoactive bowel sounds present, Soft to palpation and non-tender PALPATION: Yes Soft to palpation Extremity: COMMON NORMALS: no joint enlargement and no pedal edema Neuro: COMMON NORMALS: patient oriented x3 and moves all extremities Skin: COMMON NORMALS: no rashes or lesions noted GENERAL SKIN EXAM: no rashes or lesions noted Discharge Data Studies Completed and Pending Completed Studies During Hospitalization Category Date Time Status XR chest 1V portable [id number] Urgent Exams 10/10/21 11:34 Completed US renal BI* [id number] Routine Ultrasound 10/11/21 18:52 Completed US venous duplex lower extremity bilat [CV venous Ultrasound 10/10/21 11:38 [place] [id number]] Urgent Pending at discharge Category Date Time Status C DIFF [Clostridioides Difficile PCR] Routine Lab 10/10/21 18:49 Uncollected Enteric Bacterial Panel by PCR Routine Lab 10/10/21 18:49 Uncollected Occult Blood Stool [Immunochemical Fecal OCB] Routine Lab 10/10/21 18:55 Uncollected Radiology Impressions Chest X-Ray 10/10/21 11:34 IMPRESSION: Patchy interstitial infiltrates in the right mid lung zone and left base suspicious for an interstitial viral pneumonia. Venous Duplex 10/10/21 11:38 IMPRESSION: No evidence of deep vein thrombosis. Renal Ultrasound 10/11/21 18:52 IMPRESSION: Unremarkable kidneys and bladder. Laboratory Results WBC 10.6 10^3/uL (4.0-10.0) H 10/11/21 05:05 RBC 3.90 10^6/uL (4.1-5.3) L 10/11/21 05:05 Hgb 12.0 g/dL (11.7-16.6) 10/11/21 05:05 Hct 36.7 % (42.0-52.0) L 10/11/21 05:05 MCV 94.1 fl (80-94) H 10/11/21 05:05 MCH 30.8 pg (28.0-34.0) 10/11/21 05:05 MCHC 32.7 g/dL (30.0-36.0) 10/11/21 05:05 RDW 14.1 % (12.1-15.1) 10/11/21 05:05 Plt Count 413 10^3/cmm (130-400) H 10/11/21 05:05 MPV 9.5 fL (7.4-10.4) 10/11/21 05:05 Neut % (Auto) 66.9 % 10/11/21 05:05 Lymph % (Auto) 12.2 % 10/11/21 05:05 [place] % (Auto) 15.4 % 10/11/21 05:05 Eos % (Auto) 0.9 % 10/11/21 05:05 Baso % (Auto) 0.5 % 10/11/21 05:05 Neut # (Auto) 7.11 10^3/uL (1.8-7.7) 10/11/21 05:05 Lymph # (Auto) 1.3 10^3/uL (0.8-4.8) 10/11/21 05:05 [place] # (Auto) 1.6 10^3/uL (0.2-0.9) H 10/11/21 05:05 Eos # (Auto) 0.1 10^3/uL (0.0-0.8) 10/11/21 05:05 Baso # (Auto) 0.1 10^3/uL (0.0-0.1) 10/11/21 05:05 Nucleated RBC % (auto) 0 % 10/11/21 05:05 Nucleated RBCs # 0.0 /100WBC 10/11/21 05:05 D-Dimer 1.78 ug/mIFEU (0-0.59) H 10/10/21 17:55 Sodium 134 mmol/L (136-145) L 10/12/21 06:41 Potassium 4.9 mmol/L (3.5-5.1) 10/12/21 06:41 Chloride 105 mmol/L (98-107) 10/12/21 06:41 Carbon Dioxide 22 mmol/L (22-29) 10/12/21 06:41 Anion Gap 11.9 (5-19) 10/12/21 06:41 BUN 28 mg/dL (8-23) H 10/12/21 06:41 Creatinine 0.8 mg/dL (0.7-1.2) 10/12/21 06:41 GFR Calculation 95.6 mL/min (90-130) 10/12/21 06:41 Glucose 99 mg/dL (65-115) 10/12/21 06:41 POC Glucose 102 mg/dL (70-110) 10/10/21 11:31 Calculated Osmolality 284 mOsm/kg (285-295) L 10/12/21 06:41 Calcium 7.3 mg/dL (8.5-10.5) L 10/12/21 06:41 Total Bilirubin 0.6 mg/dL (0.15-1.2) 10/12/21 06:41 AST 44 U/L (0-40) H 10/12/21 06:41 ALT 33 U/L (0-41) 10/12/21 06:41 Alkaline Phosphatase 53 IU/L (40-130) 10/12/21 06:41 Creatine Kinase 524 U/L (39-308) H* 10/12/21 06:41 Troponin T Baseline 18 ng/L (0-15) H 10/10/21 11:31 Troponin T 120 Minute 15.12 ng/L (0-15) H 10/10/21 13:20 Delta Troponin T -2.88 ABS# (0-10) L 10/10/21 13:20 Troponin T Hi Sens 6Hr 16.92 ng/L (0-15) H 10/10/21 17:55 Troponin T Hi Sens 6Hr Delta -1.08 ng/L (0-12) L 10/10/21 17:55 C-Reactive Protein 22.3 mg/L (0.0-4.9) H 10/10/21 17:55 NT-Pro-B Natriuret Pep 234 pg/mL (0-125) H 10/10/21 11:31 Total Protein 5.3 g/dL (6.6-8.7) L 10/12/21 06:41 Albumin 2.5 g/dL (3.5-5.2) L 10/12/21 06:41 Globulin 2.8 g/dL (1.3-4.6) 10/12/21 06:41 Lipase 37 U/L (13-60) 10/10/21 11:31 Urine Color Yellow (Yellow) 10/11/21 04:50 Urine Appearance Clear (CLEAR) 10/11/21 04:50 Urine pH 5 (5-7) 10/11/21 04:50 Ur Specific [place] 1.010 (1.005-1.030) 10/11/21 04:50 Urine Protein Neg (Negative) 10/11/21 04:50 Urine Glucose (UA) Norm (Normal) 10/11/21 04:50 Urine Ketones 1+ (Negative) H 10/11/21 04:50 Urine Blood 2+ (Negative) H 10/11/21 04:50 Urine Nitrate Negative (Negative) 10/11/21 04:50 Urine Bilirubin Neg (Negative) 10/11/21 04:50 Urine Urobilinogen Norm mg/dL (Negative) 10/11/21 04:50 Ur Leukocyte Esterase Negative (Negative) 10/11/21 04:50 Urine RBC 0-4 /hpf (0-2) H 10/11/21 04:50 Urine WBC 0-4 /hpf (0-5) H 10/11/21 04:50 Ur Squamous Epith Cells 0-4 /hpf (0-5) H 10/11/21 04:50 Amorphous Sediment 1+ /hpf 10/11/21 04:50 Urine Bacteria 1+ /hpf (NONE) H 10/11/21 04:50 Ur Random Sodium 24 mmol/L 10/11/21 04:50 Ur Random Potassium 10 mmol/L 10/11/21 04:50 Ur Random Chloride 15 mmol/L 10/11/21 04:50 Vitals Last Vital Signs Temp 98.9 F 10/12/21 04:00 Pulse 64 10/12/21 04:00 Resp 16 10/12/21 04:00 BP 99/72 10/12/21 04:00 Pulse Ox 93 10/12/21 04:00 Discharge Plan Discharge Patient Disposition: Home Condition: Stable Prescriptions: Continued hydroxyzine HCl 25 mg tablet 25 mg PO TID PRN (Reason: itching) Qty: 30 0RF clopidogrel [Plavix] 75 mg tablet 75 mg PO DAILY Qty: 90 1RF levothyroxine 88 mcg tablet 88 mcg PO DAILY Qty: 90 3RF Held simvastatin 20 mg tablet 20 mg PO DAILY Qty: 90 1RF Hold Instructions: Resume on 10/13/21. Discontinued lisinopril 10 mg tablet 10 mg PO DAILY Qty: 90 1RF Discharge Orders: Discharge Order (Routine); Ordered 10/12/21 Ordered By: Bassem Wu Other Ambulatory Orders: DME: [facility]onaldo (Order) Location: None Selected Ordered By: Indigo De Jesus Referrals: Alfonzo Galan DO [Primary Care Provider] - 7-10 days Discharge Diet: Advance as tolerated Discharge Activity: Resume usual activity Patient Instructions: Dehydration - Adult, Levothyroxine (By mouth), Clopidogrel (By mouth), Acute Kidney Injury (GEN), Rhabdomyolysis (DC), COVID-19 (Coronavirus Disease 2019) (DC), Opioid Safety Activity Restrictions/Additional Instructions: Please measure blood pressures 3 times daily, write the values to bring to your appointment. Please rise slowly from laying to sitting and sitting to standing, in case you get lightheaded please sit down or lie down immediately to avoid fainting and/or falling Please follow-up with your primary doctor regarding recovery from coronavirus infection, as well as to follow-up on soft blood pressures. Please have your primary doctor follow your kidney function to ascertain recovery from acute kidney injury. Hold statin for now due to rhabdomyolysis, have your primary doctor reassess muscle enzyme at next visit. Discharge Attestations Time Spent in Discharge Care*: greater than 30 min Quality Metrics Clinical Quality Measures [ No reported AMI, CVA or VTE this stay] Coding Level of Care Code Acute Chg [facility] DC note Diagnoses Dehydration E86.0 COVID-19 U07.1 CORBIN (acute kidney injury) N17.9 Transaminitis R74.01 Hyponatremia E87.1 Diarrhea R19.7 Rhabdomyolysis due to COVID-19 U07.1; M62.82
--- NOTE | 2021-10-12 15:29 | PC.NURSE ---
patient verbalized understanding of discharge instructions, home medications, and follow up appointments. I called pts and she stated that she would be here in about an hour.
[2021-10-12 16:22] VITALS: BP 110/52; PULSE 73; TEMP 36.2; O2SAT 99
== END 2021-10-12 15:45 | disposition home or self-care (01) | DRG 178 ==
LOC: ER 12:45 → MEDSURG 15:00
PROVIDERS: Admitting Provider Student in an Organized Health Care Education/Training Program; Emergency Provider Emergency Medicine; PCP Family Medicine; Visit Provider Internal Medicine
DX: U07.1 COVID-19 (principal); E87.1 Hypo-osmolality and hyponatremia; N17.9 Acute kidney failure, unspecified; M62.82 Rhabdomyolysis; E78.5 Hyperlipidemia, unspecified; E86.0 Dehydration; E87.5 Hyperkalemia
CPT/HCPCS: 36415; 36416; 71045; 76770; 80053; 81001; 82436; 82550; 82962; 83690; 83880; 84133; 84300; 84484; 85025; 85378; 86140; 93005; 93970; 96360; 96372; 99285; J1650; J7030

== ENCOUNTER → 2021-10-30 09:31 | Outpatient (BNVA) | payer MEDICARE, SELFPAY | PROVIDERS: PCP Family Medicine; Visit Provider Nurse Practitioner Family | DX: R06.02 Shortness of breath (principal); R05.9 Cough, unspecified; Z86.16 Personal history of COVID-19 | CPT/HCPCS: 71046 ==

== ENCOUNTER → 2022-06-28 12:15 | Outpatient (BNVA) | payer MEDICARE, SELFPAY | PROVIDERS: PCP Family Medicine; Visit Provider Nurse Practitioner Family | DX: R05.9 Cough, unspecified (principal) | CPT/HCPCS: 87426 ==

== ENCOUNTER → 2022-12-15 10:50 | Outpatient (BNVA) | payer MEDICARE, SELFPAY | PROVIDERS: PCP Family Medicine; Visit Provider Family Medicine | DX: R05.3 Chronic cough (principal) | CPT/HCPCS: 71046 ==

== ENCOUNTER 2022-12-21 14:11 | Outpatient (CLI) | payer MEDICARE, SELFPAY ==
--- NOTE | 2022-12-21 14:15 | CT_ITS ---
WS: [id number] CT CHEST TECHNIQUE: Noncontrast CT of the chest with coronal and sagittal reformatted images. CLINICAL INFORMATION: R05.3 - Chronic cough COMPARISON: None. DLP: 229.[address] scans at [facility] use at least one of these dose optimization techniques: automated e xposure control; mA and/or kV adjustment per patient size (includes targeted exams where dose is matc hed to clinical indication); or iterative reconstruction. FINDINGS:Patchy nodular infiltrate in the RIGHT upper lobe with wedge-shaped consolidation in the RIG HT upper lobe anteriorly and laterally. Area of subtotal wedge-shaped consolidation measures 6.1 x 4. 6 cm. Enlarged lymph nodes RIGHT hilum. Narrowing of the RIGHT upper lobe bronchus. Additional patchy infiltrates in the surrounding RIGHT upper lobe with micronodularity. Noncalcified nodule in the RIG HT lung apex measuring 7 mm. Recommend further evaluation with bronchoscopy to exclude neoplasm with postobstructive pneumonia. Tiny subpleural nodule LEFT lower lobe. RIGHT lower lobe is well aerated. LEFT lung is well aerated. Normal caliber thoracic aorta. Mild aortic calcification. Coronary calcification. Prominent RIGHT hil ar lymph nodes. Normal caliber descending thoracic aorta. No axillary lymphadenopathy. Adrenal glands are normal. Normal GE junction. Fatty atrophy of the pancreas. Mild thoracic kyphosis. Adrenal gland s are normal. CT/CT chest wo con [id number] IMPRESSION: 1. Enlarged RIGHT hilar lymph nodes, the largest measuring 2.5 cm with narrowi ng of the RIGHT upper lobe bronchus. 2. Wedge-shaped subpleural consolidation RIGHT upper lobe measuring 6.1 x 4.6 cm. Recommend further evaluation with bronchoscopy to exclude neoplasm. 3. Additional RIGHT upper lobe noncalcified nodule near the lung apex measurin g 7 mm. 4. Additional patchy micronodular tree-in-bud opacities in the RIGHT upper lob e at the lung apex. 5. LEFT lung is well aerated. 6. No other acute findings.
== END 2022-12-21 14:12 | disposition home or self-care (01) ==
LOC: RAD 14:18
PROVIDERS: PCP Family Medicine; Visit Provider Family Medicine
DX: R05.3 Chronic cough (principal); R91.1 Solitary pulmonary nodule; R59.0 Localized enlarged lymph nodes
CPT/HCPCS: 71250

== ENCOUNTER → 2022-12-23 10:50 | Outpatient (BNVA) | payer MEDICARE, SELFPAY | PROVIDERS: PCP Family Medicine; Visit Provider Thoracic Surgery (Cardiothoracic Vascular Surgery) | DX: J98.4 Other disorders of lung (principal); Z87.891 Personal history of nicotine dependence | CPT/HCPCS: 99203 ==

== ENCOUNTER 2023-01-08 06:09 | Outpatient (CLI) | payer MEDICARE, SELFPAY ==
--- NOTE | 2023-01-08 09:30 | PETR_ITS ---
PROCEDURE INFORMATION: Exam: PET/CT Skull Base to Mid-thigh Exam date and time: 01/08/2023 10:05 AM Age: 72 years old Clinical indication: Abnormal findings; RT lung mass LABS AND CLINICAL REPORTS: Glucose: 72 mg/dl Treatment strategy for malignancy (PET staging): Initial Staging (PI) TECHNIQUE: Imaging protocol: Following at least four-hour fasting and following the injection of radiopharmaceutical, low dose CT images were obtained. Then, PET images were obtained. Attenuation corrected images were constructed using the CT scan. Fused images of PET and CT were reviewed. The standardized uptake values (SUV) reported below are maximum values within a region of interest, expressed in gm/ml. Exam includes orbital meatal line to mid-thigh. Radiopharmaceutical: 11.6 mCi F-18 FDG (Fluorodeoxyglucose), IV. Time of imaging post radiopharmaceutical administration: 1 hour Injection site: Left antecubital vein COMPARISON: CT chest con [id number] 12/21/2022 2:29 PM FINDINGS: Brain: Visualized brain has normal physiologic uptake. Paranasal sinuses: There is mucosal thickening in bilateral paranasal sinuses with sparing of the frontal sinuses most extensive in the maxillary sinuses with no air-fluid levels suggestive of chronic sinusitis. Pharynx: No abnormal uptake. Larynx: No abnormal uptake. Lungs, pleura and trachea: About 1.5 cm nodule of high uptake of 10.6 SUV within the perihilar right upper lobe associated with occlusion of the lobar bronchus is suggestive of central malignancy. Wedge-shaped consolidation in the inferior most anterior aspect of the right upper lobe with the highest uptake of 5 SUV is suggestive of post obstruction pneumonia/atelectasis. 7 mm nodule in the apex of the right upper lobe on image 44 measures 2.5 SUV. No pleural effusion. Heart: Normal physiologic uptake. There is no cardiomegaly. Coronary artery calcification is present. There is no pericardial effusion. Mediastinal space: No abnormal uptake. Liver: No abnormal uptake. Gallbladder and bile ducts: No abnormal uptake. Pancreas: No abnormal uptake. Spleen: No abnormal uptake. No splenomegaly. Adrenal glands: No abnormal uptake. No nodules. Kidneys and ureters: Normal physiologic uptake. No hydronephrosis. Stomach and bowel: Increased uptake in the cecum with no corresponding CT abnormality is probably benign. No abnormal dilatation of the bowel. 3 cm diverticulum in the duodenum. Vasculature: No abnormal uptake. No aortic aneurysm. Atherosclerotic calcifications in the aorta, iliac and femoral arteries, bifurcation of bilateral carotid arteries. Lymph nodes: No abnormal uptake. No lymphadenopathy in the head, neck, chest, abdomen, pelvis, and extremities. Bones/joints: No abnormal uptake in the visualized axial and appendicular skeleton. Soft tissues: No abnormal uptake in the visualized head, neck, chest, abdomen, pelvis, and extremities. PET/PET skulltothigh INITIAL [id number] IMPRESSION: 1.5 cm nodule in the perihilar right upper lobe associated with occlusion of the lobar bronchus with the highest uptake of 10.6 SUV is suggestive of central lung malignancy. There is subsegmental atelectasis or postobstructive pneumonia inferiorly in the right upper lobe with the highest uptake of 5 SUV. 7 mm nodule in the apex of the right upper lobe with borderline uptake of 2.5 SUV is indeterminate, may be benign inflammatory or malignant. No evidence of FDG avid metastatic disease. Benign incidental findings (chronic sinusitis, arterial calcifications, duodenal diverticulum).
== END 2023-01-08 06:10 | disposition home or self-care (01) ==
LOC: RAD 01-10 06:10
PROVIDERS: PCP Family Medicine; Visit Provider Thoracic Surgery (Cardiothoracic Vascular Surgery)
DX: R91.8 Other nonspecific abnormal finding of lung field (principal)
CPT/HCPCS: 78815; 99203; A9552

== ENCOUNTER → 2023-01-14 09:19 | Outpatient (BNVA) | payer MEDICARE, SELFPAY | PROVIDERS: PCP Family Medicine; Visit Provider Internal Medicine Pulmonary Disease | DX: J98.4 Other disorders of lung; J43.9 Emphysema, unspecified; R91.8 Other nonspecific abnormal finding of lung field; Z87.891 Personal history of nicotine dependence | CPT/HCPCS: 99204 ==

== ENCOUNTER 2023-01-18 06:59 | Day surgery (SDC) | payer MEDICARE, SELFPAY ==
[2023-01-14 09:55] VITALS: BMI 24.7
[2023-01-18] VITALS (8 sets, daily range): BP systolic 114–160; BP diastolic 79–95; PULSE 67–101; RESP 12–22; TEMP 36.1–36.9; O2SAT 90–97
[2023-01-18] MEDS: sodium chloride 0.9% 1,000 ML 30 ML IV (07:24)
--- NOTE | 2023-01-18 08:36 | W.PM.OPSUD ---
Surgery/Procedure H&P Update DATE OF PROCEDURE: January 18, 2023 DATE H&P PERFORMED: 01/14/23 H&P UPDATE INFORMATION: I have reviewed H&P completed within last 30 days, I have examined patient prior to procedure and No changes to prior documentation CHANGES TO PREVIOUS DOCUMENTATION: None PRIMARY INDICATION FOR PROCEDURE: To rule out malignancy in this patient with CT evidence of enlarged right hilar lymph node-PET active suggestive of central malignancy, with suspected right upper lobe endobronchial lesion PLANNED PROCEDURE: Operation Date: 01/18/23 09:00 Proposed Procedures p BRONCH, EBUS, 19820, 08842, 93825, 84824, 57218, 73092, 75526, 83274, 10811, 00542, 10506, 77176, 40311, R91.8(Not Applicable) - Stephon Lawrence MD s Ebus(Not Applicable) - Stephon Lawrence MD
--- NOTE | 2023-01-18 09:24 | ANES.PREANE2 ---
Pre-Anesthetic Assessment Height/Weight: Height 1.73 m Weight 73.936 kg Temp Pulse Resp BP Pulse Ox O2 Del Method 97.3 F L 67 17 155/85 97 Room Air 01/18/23 07:15 01/18/23 07:15 01/18/23 07:15 01/18/23 07:15 01/18/23 07:15 01/18/23 07:15 Operation Date: 01/18/23 09:00 Proposed Procedures p BRONCH, EBUS, 56179, 21145, 08609, 78813, 18088, 60951, 96244, 71703, 77274, 43919, 68384, 38831, 39088, R91.8(Not Applicable) - Stephon Lawrence MD s Ebus(Not Applicable) - Stephon KirkpatrickrMD Familial anesthetic complications: none Was Beta Dejon taken within 24 hours: N/A Was Clonidine taken within 24 hours: N/A Last intake: Intake Last Liquid Date 01/17/23 Last Liquid Time 19:00 Last Solid Date 01/17/23 Last Solid Time 19:00 Social Alcohol and No tobacco Exam alert, oriented x 3, clear to auscultation bilaterally and regular rate & rhythm Airway Submandibular: within normal limits Cervical ROM: within normal limits Mallampati: Class I Dentition: false History/ROS Other CV/HEM Coronary Artery Disease, Hypertension and Myocardial Infarction 20 years ago NV None reported Hepatic None reported GI Gastroesophageal Reflux Disease Metabolic Hyperlipidemia and Thyroid Disease Musc/skel Lower Back Pain hip pain Neuropsych Transient Ischemic Attack (3.5 years ago) Anesthetic Plan ASA status: 3 Anesthesia: General Risk of > 500 ml blood loss (7ml/kg in children): No Medications/Allergies Home Medications Medication Instructions Recorded Confirmed Last Taken Type tiotropium bromide 18 mcg capsule 1 cap inhalation DAILY #60 01/14/23 01/18/23 Unknown Rx with inhalation device (Spiriva inhalations with HandiHaler) clopidogrel 75 mg tablet 75 mg PO DAILY 01/18/23 01/18/23 01/12/23 History levothyroxine 88 mcg tablet 88 mcg PO DAILY 01/18/23 01/18/23 01/16/23 History lisinopril 10 mg tablet 10 mg PO DAILY 01/18/23 01/18/23 01/16/23 History Allergies Allergy/AdvReac Type Severity Reaction Status Date / Time No Known Allergies Allergy Verified 01/18/23 07:14 Current Medications Generic Name Dose Route Start Last Admin Trade Name Freq PRN Reason Stop Dose Admin Sodium Chloride 1,000 mls @ 30 mls/hr 01/18/23 07:15 01/18/23 07:24 Sodium Chloride 0.9% IV 01/19/23 07:14 30 mls/hr .Q24H SAIDA Administration PFSH Anesthesia Medical History Hyperlipidemia Family History Brother CAD (coronary artery disease) Cancer Diabetes Hypertension Mother Cancer Diabetes Stroke Sister Cancer Social History Smoking and tobacco status: former smoker Quit status (tobacco): has quit using tobacco Year quit tobacco: 2019 Former quit date comment: smoked 2 pack per day x 40 years Alcohol intake: never Substance/Drug Use: never Household members: spouse Housing: House Marital status: Number of children: 6 Pets and animals: Yes Pets & animals: cat(s) Data Anesthesia Cardiac Studies: No Data to Display
[2023-01-18] MEDS: lidocaine 1% INJ 10 mL (per mL) XX (10:12)
--- NOTE | 2023-01-18 11:12 | XR_ITS ---
WS: [id number] PORTABLE CHEST HISTORY: POST BRONCH/EBUS COMPARISON: Prior PET/CT 01/08/2023, 12/15/2022 chest radiograph. Volume loss and interstitial thickening in the RIGHT upper lobe with elevation of the fissure. No pne umothorax status post recent bronchoscopy and biopsy. There is new RIGHT paratracheal soft tissue den sity which may be post biopsy bleeding or some edema. This was not present on prior studies. No pleur al effusion or pneumothorax. Cardiac size: Normal. Mediastinum/Aorta: Mild mediastinal widening due to the RIGHT paratracheal no soft tissue. Slight dev iation of the trachea to the RIGHT from volume loss. No osseous abnormality seen. XR/XR chest 1V portable [id number] IMPRESSION: 1. No pneumothorax status post recent lung biopsy by bronchoscopy. 2. New RIGHT paratracheal soft tissue. Suspect edema or post biopsy bleeding. 3. Volume loss RIGHT upper lobe.
--- NOTE | 2023-01-18 11:12 | P.OP_ITS ---
Operative Report Date of procedure: January 18, 2023 Pre-op diagnosis: Suspected malignancy Post-op diagnosis: Same as preop diagnosis Procedure done: 17360 Dx Bronchoscope w/BAL 26409 Dx Bronchoscopy w/Bronchial or Endobronchial biopsy(s), single or multiple sites 81943 Bronchoscopy w/ therapeutic aspiration of the tracheobronchial tree (clearance of airway secretions, removal of mucus plugs) 61164 EBUS Sampling 2 nodes Brief History: Mr. Rich Mederos is a 72-year-old male with 80-bywa-lext smoking history quit in 2021-referred by Dr. Villalobos for 1.5 cm nodule in the perihilar right upper lobe. Patient had increasing episodes of cough for which he had chest x-ray which showed right hilar adenopathy.? A subsequent CT chest 12/21/2022 which showed enlarged right hilar lymph node measuring 2.5 cm with narrowing of right upper lobe bronchus.? There is wedge- shaped subpleural consolidation in the right upper lobe measuring 6.1 x 4.6 cm concerning for postobstructive pneumonia. Follow-up PET/CT PET CT 01/08/2023 that showed 1.5 cm nodule in perihilar right upper lobe associated with occlusion of lobar bronchus with highest uptake of 10.6 SUV suggestive of central lung malignancy.? There is subsegmental atelectasis or postobstructive pneumonia inferiorly in the right upper lobe with highest uptake 5 SUV.? 7 mm nodule in the apex of the right upper lobe with borderline uptake 2.5 SUV is indeterminate.? There is no other evidence of FDG avid metastatic disease. Patient reported having SOB on exertion, productive cough with clear sputum.? Currently is not taking any inhalers.? He did admitted to having fatigue but denied any obvious weight loss.Denied any cardiac problems, chest pains, palpitations, leg swelling Patient is scheduled for bronchoscopic evaluation of airway inspection and possible endobronchial biopsies as well as endobronchial ultrasound guided surveillance and possible mediastinal/hilar lymph nodes. Procedure: 96580 Dx Bronchoscope w/BAL 22374 Dx Bronchoscopy w/Bronchial or Endobronchial biopsy(s), single or multiple sites 87415 Bronchoscopy w/ therapeutic aspiration of the tracheobronchial tree (clearance of airway secretions, removal of mucus plugs) 24286 EBUS Sampling 2 nodes Indication: PET active 1.5 cm nodule in perihilar right upper lobe with possible occlusion of lobar bronchus in patient with significant smoking history Anesthesia: General anesthesia. Local anesthesia: The mehran in the right and left mainstem bronchi were anesthetized with 1% lidocaine, 3 mL. Description of the procedure: The procedure was explained to the patient and the consent was obtained. The patient was brought to the OR. The patient underwent induction for general anesthesia and endotracheal tube was placed The bronchoscope was advanced through the ET tube. The distal trachea was visualized. Tracheal mucosa appeared normal, no endotracheal lesion was seen. The mehran was sharp. 1 mL each of 1% lidocaine was instilled in the trachea the right and left mainstem bronchi for local anesthesia. In a systematic manner bilateral bronchial tree was then examined. The bronchoscope was advanced into the left mainstem bronchus. The mucosa appeared normal with no endobronchial lesions. The left upper lobe, and lingula were examined up to the third subsegmental level and no abnormalities were identified. Mucosa of left upper lobe and lingula appeared normal with no endobronchial lesion. There were clear secretions which were suctioned right away(27351). The bronchoscope was then introduced into the right mainstem bronchus. The entrance of right upper lobe has 90% occlusion with endobronchial lesions. Bronchoscope retracted into right bronchus intermedius and advanced to visualize right middle lobe and right lower lobe bronchi which were examined up to the third subsegmental level and no abnormalities were identified. The mucosa appeared normal with no endobronchial lesions, active bleeding or mucous plugs. A forcep was used and about 4 pieces of endobronchial biopsies (30914) were obtained, placed in formalin and sent to histopathology. 40 cc normal saline was instilled in the right upper lobe and BAL taken. There was some evidence of bleeding from biopsy sites. I have instilled 5 cc cold saline to control resultant bleeding. After making sure there is no overt bleeding from right upper lobe bronchus, bronchoscope was retracted and endobronchial ultrasound (06649 ) was introduced. Identified a lymph nodes at station 10 R and station 4L. Using fine-needle- biopsies were taken from all 2 lymph node stations (48226); touch prep from 10R lymph node stations were sent for VIVIANA. Pathology reported not seeing malignant cells on the slide from 10 R. I made at least 3 passes from each site and rest of the tissue placed in separate formalin cups with appropriate labeling and sent for histopathology review. After making sure there is no active bleeding, bronchoscope retracted and procedure terminated. Samples: A. A forcep was used and about 4 pieces of endobronchial biopsies (43829) near ostia of left lower lobe were obtained, placed in formalin and sent to histopathology. B. Station 10R (32103): touch prep -pathology reported not seeing malignant cells; rest of the material was placed in formalin for histopathology C. Station 4R (94613): All the material was placed in formalin for histopathology 1. Bronchoalveolar lavage (10253) was performed after wedging the bronchoscope at the entrance of right upper lobe. 40 mL of saline was instilled, fluid return was 15 mL. Bronchoalveolar lavage specimen was sent for cell count and differential, gram stain and culture Complications: None.The patient was extubated and brought to the PACU in stable condition. Postprocedure chest x-ray: No evidence of pneumothorax. There is evidence of new paratracheal soft tissue suspect edema/post biopsy bleeding. Patient recovered well with no evidence of overt hemoptysis or chest pain. Disposition: Patient can be discharged home in stable condition. Pt and his are aware that I am going to call them to update final biopsy results once available. .
[2023-01-18 12:13] LABS: Apprearance, Bronch Wash Bloody (CLEAR); Color, Bronc Wash Red; Cyto Order Verification Order Verified
[2023-01-18 12:17] LABS: Total Cells Counted Bronch 200
[2023-01-18 12:18] LABS: Bronch Source Right Upper Lobe; PATH Referral Yes
--- NOTE | 2023-01-18 14:53 | ANE.PACU2 ---
Inpatient post-anesthesia follow up: Airway intact: Yes Vital signs: Temperature 97.0 F Pulse Rate 88 Respiratory Rate 17 Blood Pressure 129/79 Pulse Oximetry 96 Oxygen Delivery Me thod Room Air Oxygen Flow Rate Fraction of Inspir ed Oxygen Hydration adequate: Yes Nausea and vomiting: No Pain level: 2 Mental status: Baseline
== END 2023-01-18 12:08 | disposition home or self-care (01) ==
PROVIDERS: PCP Family Medicine; Visit Provider Internal Medicine Pulmonary Disease
PROC: 0BJ08ZZ Inspection of Tracheobronchial Tree, Via Natural or Artificial Opening Endoscopic (ICD-10-PCS; CPT 31622; principal; 2023-01-18 08:50)
PROC: BB4BZZZ Ultrasonography of Pleura (ICD-10-PCS; 2023-01-18 08:50)
DX: C34.11 Malignant neoplasm of upper lobe, right bronchus or lung (principal); I25.10 Atherosclerotic heart disease of native coronary artery without angina pectoris; I10 Essential (primary) hypertension; I25.2 Old myocardial infarction; K21.9 Gastro-esophageal reflux disease without esophagitis; E78.5 Hyperlipidemia, unspecified; E03.9 Hypothyroidism, unspecified; Z79.02 Long term (current) use of antithrombotics/antiplatelets; Z87.891 Personal history of nicotine dependence
CPT/HCPCS: 31624; 31625; 31645; 31652; 71045; 80503; 87070; 87077; 87205; 88112; 88305; 88342; 89050; J1100; J2405; J2704; J3010; J7030

== ENCOUNTER 2023-01-24 07:09 | Oncology outpatient (recurring) (ONCR) | payer MEDICARE, SELFPAY ==
[2023-05-26 15:06] LABS: Miscellaneous Test See Scanned Lab Rpt
== END 2023-02-09 23:59 | disposition home or self-care (01) ==
PROVIDERS: Internal Medicine Pulmonary Disease; PCP Family Medicine; Visit Provider Internal Medicine Medical Oncology
DX: C34.11 Malignant neoplasm of upper lobe, right bronchus or lung (principal); J98.11 Atelectasis; Z87.891 Personal history of nicotine dependence
CPT/HCPCS: 36415; 99205

== ENCOUNTER 2023-01-27 10:14 | Outpatient (CLI) | payer MEDICARE, SELFPAY ==
[2023-01-27 10:30] VITALS: PULSE 77; RESP 18; O2SAT 98
[2023-01-27] MEDS: albuterol 2.5 mg/3 mL Neb INHALATION (10:30)
[2023-01-27 10:35] VITALS: PULSE 78
== END 2023-01-27 10:15 | disposition home or self-care (01) ==
LOC: RT 10:17
PROVIDERS: PCP Family Medicine; Visit Provider Internal Medicine Pulmonary Disease
DX: J98.4 Other disorders of lung (principal); R91.8 Other nonspecific abnormal finding of lung field; J43.9 Emphysema, unspecified; Z87.891 Personal history of nicotine dependence
CPT/HCPCS: 94060; 94726; 94729; 99204; J7613

== ENCOUNTER → 2023-03-08 15:00 | Outpatient (BNVA) | payer MEDICARE, SELFPAY | PROVIDERS: PCP Family Medicine; Visit Provider Nurse Practitioner Family | DX: E03.9 Hypothyroidism, unspecified (principal); U07.1 COVID-19; E11.9 Type 2 diabetes mellitus without complications; N28.89 Other specified disorders of kidney and ureter; I10 Essential (primary) hypertension; I63.9 Cerebral infarction, unspecified | CPT/HCPCS: 80053; 80061; 83036; 84443; 85025 ==

== ENCOUNTER 2023-06-22 10:23 | Outpatient (CLI) | payer MEDICARE, SELFPAY ==
--- NOTE | 2023-06-22 10:36 | XRR_ITS ---
PROCEDURE INFORMATION: Exam: XR Chest Exam date and time: 06/22/2023 10:47 AM Age: 72 years old Clinical indication: Device placement; Prior surgery; Surgery date: 1-6 months; Surgery type: R thoracotomy rul sleeve lobectomy, about 5 weeks ago; Additional info: S/P R thoracotomy rul sleeve lobectomy TECHNIQUE: Imaging protocol: Radiologic exam of the chest. Views: 2 views. COMPARISON: CR XR chest 1V portable [id number] 01/18/2023 10:50 AM FINDINGS: Lungs: Postprocedural changes of the right upper lobe. No focal consolidation. Pleural spaces: Unremarkable. No pleural effusion. No pneumothorax. Heart/Mediastinum: Unremarkable. No cardiomegaly. Bones/joints: Unremarkable. XR/XR chest 2V* [id number] IMPRESSION: No acute findings.
== END 2023-06-22 10:24 | disposition home or self-care (01) ==
PROVIDERS: PCP Family Medicine; Visit Provider Thoracic Surgery (Cardiothoracic Vascular Surgery)
DX: Z48.813 Encounter for surgical aftercare following surgery on the respiratory system (principal); Z90.2 Acquired absence of lung [part of]
CPT/HCPCS: 71046

== ENCOUNTER 2023-10-13 11:29 | Outpatient (CLI) | payer MEDICARE, SELFPAY ==
--- NOTE | 2023-10-13 11:43 | CT_ITS ---
WS: [id number] CT chest wo con [id number] HISTORY: LUNG NODULES TECHNIQUE: Axial imaging performed through the thorax. Coronal and sagittal reformats are submitted. All CT scans at [facility] use at least one of these dose optimization techniques: automated exposure control; mA and/or kV adjustment per patient size (includes targeted exams where dose is mat ched to clinical indication); or iterative reconstruction. CONTRAST: None DLP: 349.59 mGy.cm COMPARISON: Chest CT 12/21/2022 and PET/CT 01/08/2023 Lungs and central airway: Volume loss in the RIGHT thorax. Although no surgical sutures are identifie d there does appear to be RIGHT upper lobe lobectomy. There is no residual mass identified. No adenop athy at the hilar regions. Pleura: Normal. No pleural effusion. Heart and pericardium: Normal size heart with no pericardial effusion. Mediastinum and william: No mediastinum or hilar adenopathy. Vessels: Mild atherosclerosis aorta. Chest wall and lower neck: No soft tissue masses. Upper abdomen: No adrenal mass. Visualized liver is negative. Osseous structures: No lytic or sclerotic bone lesions. IMPRESSION: 1. Status post RIGHT upper lobe lobectomy. 2. No recurrent mass or adenopathy in the thorax. 3. No pleural effusions. 4. No metastatic disease to the adrenal glands.
== END 2023-10-13 11:30 | disposition home or self-care (01) ==
LOC: RAD 11:31
PROVIDERS: PCP Family Medicine; Visit Provider Nurse Practitioner
DX: R91.8 Other nonspecific abnormal finding of lung field (principal); Z90.2 Acquired absence of lung [part of]
CPT/HCPCS: 71250

== ENCOUNTER → 2024-04-03 11:30 | Outpatient (BNVA) | payer MEDICARE, SELFPAY | PROVIDERS: PCP Family Medicine; Visit Provider Nurse Practitioner Family | DX: I10 Essential (primary) hypertension (principal) | CPT/HCPCS: 80053; 80061; 84443 ==

== ENCOUNTER → 2024-05-23 09:22 | Outpatient (BNVA) | payer MEDICARE, SELFPAY | PROVIDERS: PCP Family Medicine; Visit Provider Nurse Practitioner Family | DX: E03.9 Hypothyroidism, unspecified (principal) | CPT/HCPCS: 84443 ==